=== PATIENT | female | born 1975 | race Caucasian/White ===

== ENCOUNTER 2018-07-09 18:58 | Emergency (ER) | payer SELFPAY ==
[~2018-07-09] VITALS: Ht 172.7 cm; Wt 59.0 kg
[~2018-07-09 18:58] MED LIST: ONDAN4ODT PO; PNT40TEC PO; SULF1TAB38 PO; TRM50T PO
--- NOTE | 2018-07-09 19:20 | ED Headache ---
General Stated Complaint: HEADACHE X 4-5 DAYS Source: patient Exam Limitations: no limitations History of Present Illness Date Seen by Provider: July 09, 2018 Time Seen by Provider: 19:08 Initial Comments The patient presents to ER by private conveyance with chief complaint of a headache for the past 4-5 days. She did go to her doctor and they prescribed her some antibiotics for a boil standing up on her left forearm. She thinks she was bit by a bug there. It is not draining anything. She thinks she has a fever today the ER nurse states she does not. She has been using ibuprofen but no Tylenol last dose was about 5 or 6 hours ago. She is not using anything for nausea and not having any nausea. She does have pain in the back of her head going up to her temples, non-throbbing. She has no history of migraines. She does have a congested, runny nose but no sore throat cough shortness of breath chest pain nausea vomiting diarrhea. She has not picked up the antibiotics yet because when she went to the pharmacy and they were not very up. Allergies and Home Medications Allergies Coded Allergies: No Known Drug Allergies (Unverified , 10/30/10) Home Medications Ondansetron Hcl 4 Mg Tab, 4 MG PO Q4H FOR NAUSEA AND VOMITING Prescribed by: HEBER FELDER on 12/29/111746 Pantoprazole Sodium 40 Mg Tablet.dr, 1 TAB PO DAILY Prescribed by: HEBER FELDER on 12/29/111746 Sulfamethoxazole/Trimethoprim 1 Each Tablet, 1 EACH PO BID Prescribed by: ALFREDO LANGE on 07/09/181925 Tramadol Hcl 50 Mg Tab, 50 MG PO Q4-6HOURS PRN FOR PAIN Prescribed by: HEBER FELDER on 12/29/111746 Trimethoprim/Sulfamethoxazole 1 Ea Tablet, 1 EA PO BID, (Reported) Patient Home Medication List Home Medication List Reviewed: Yes Review of Systems Review of Systems Constitutional: No chills, No diaphoresis Eyes: Denies Blindness, Denies Blurred Vision Ears, Nose, Mouth, Throat: denies ear pain, denies ear discharge; nose discharge; denies throat pain, denies throat swelling Respiratory: No cough, No hemoptysis Cardiovascular: No chest pain, No palpitations Gastrointestinal: No abdominal pain, No constipation Past Tjrltha-Ksituy-Uleemr Hx Patient Social History Alcohol Use: Denies Use Recreational Drug Use: No Smoking Status: Never a Smoker Recent Foreign Travel: No Contact w/Someone Who Travel: No Physical Exam Vital Signs Capillary Refill : Height, Weight, BMI Height: '" Weight: lbs. oz. kg; BMI Method:Actual General Appearance: WD/WN, no apparent distress HEENT: normal ENT inspection, TMs normal, pharynx normal Neck: full range of motion, normal inspection Cardiovascular: normal peripheral pulses, regular rate, rhythm Respiratory: normal breath sounds, no respiratory distress Extremities: normal range of motion, non-tender, normal capillary refill Psychiatric: alert, oriented x 3 Crainal Nerves: normal hearing, normal speech, PERRL Coordination/Gait: normal gait Skin: normal color, warm/dry, other (there is a small red raised mildly tender nodule on the left forearm without fluctuance or collection of significant purulence. There is black, pointing but no drainage.) Progress/Results/Core Measures Results/Orders Lab Results Laboratory Tests Test 07/09/18 19:25 Range/Units Urine Color YELLOW Urine Clarity CLEAR Urine pH 7 5-9 Urine Specific [place] 1.010 L 1.016-1.022 Urine Protein 1+ H NEGATIVE Urine Glucose (UA) NEGATIVE NEGATIVE Urine Ketones NEGATIVE NEGATIVE Urine Nitrite NEGATIVE NEGATIVE Urine Bilirubin NEGATIVE NEGATIVE Urine Urobilinogen NORMAL NORMAL MG/DL Urine Leukocyte Esterase 1+ H NEGATIVE Urine RBC (Auto) 2+ H NEGATIVE Urine RBC 2-5 H /HPF Urine WBC 5-10 H /HPF Urine Squamous Epithelial Cells 5-10 /HPF Urine Crystals NONE /LPF Urine Bacteria TRACE /HPF Urine Casts NONE /LPF Urine Mucus SMALL H /LPF Urine Yeast FEW H /HPF Urine Culture Indicated YES My Orders Orders - ALFREDO LANGE Diphenhydramine Tablet (Benadryl Tablet) (07/09/18 19:30) Prochlorperazine Tablet (Compazine Table (07/09/18 19:30) Ketorolac Injection (Toradol Injection) (07/09/18 19:30) Acetaminophen Tablet (Tylenol Tablet) (07/09/18 19:30) Ua Culture If Indicated (07/09/18 19:18) Sulfamethoxazole/Trimet Ds Tab (Bactrim (07/09/18 19:30) Urine Culture (07/09/18 19:25) Medications Given in ED Current Medications Medications Dose Ordered Sig/Kathrin Route Start Time Stop Time Status Last Admin Dose Admin Acetaminophen 1,000 mg ONCE ONCE PO 07/09/18 19:30 07/09/18 19:31 DC 07/09/18 19:28 1,000 MG Diphenhydramine HCl 25 mg ONCE ONCE PO 07/09/18 19:30 07/09/18 19:31 DC 07/09/18 19:28 25 MG Ketorolac Tromethamine 30 mg ONCE ONCE IVP 07/09/18 19:30 07/09/18 19:31 DC 07/09/18 19:30 30 MG Prochlorperazine Maleate 10 mg ONCE ONCE PO 07/09/18 19:30 07/09/18 19:31 DC 07/09/18 19:28 10 MG Trimethoprim/ Sulfamethoxazole 1 ea ONCE ONCE PO 07/09/18 19:30 07/09/18 19:31 DC 07/09/18 19:33 1 EA Progress Progress Note #1: Time: 19:23 Progress Note Compazine, Benadryl, Tylenol, Toradol and a urinalysis. Patient sounds like she' s having a viral syndrome with tension headache. Plan to give her her first dose of antibiotic for her abscess so she can go home get some sleep. It is not at a point where it could be drained as there does not appear to be any fluctuance or collection of fluid underneath. Progress Note #2: Time: 20:01 Progress Note Urinalysis probably represents contamination however she is going to put on Bactrim for a week anyways for her abscess. We'll follow the culture. Departure Impression Primary Impression: Viral syndrome Additional Impressions: Tension headache Abscess of left arm Disposition: 01 HOME, SELF-CARE Condition: Stable Departure-Patient Inst. Decision time for Depature: 20:01 Referrals: NO,LOCAL PHYSICIAN (PCP/Family) Primary Care Physician Patient Instructions: Headache, Adult (DC), Skin Abscess Add. Discharge Instructions: pipelines superintendent the antibiotic at the pharmacy. Use warm compresses on the abscess as often as necessary. Use Tylenol and ibuprofen for your headache. Get some sleep. Do not use phones, tablets or TV tonight. Scripts Sulfamethoxazole/Trimethoprim (Bactrim Ds Tablet) 1 Each Tablet 1 EACH PO BID for 7 Days, #14 TAB 0 Refills Prov: ALFREDO LANGE 07/09/18 ALFREDO LANGE July 09, 2018 19:20
[2018-07-09] MEDS ORDERED: SULF1TAB35 PO (19:26)
[2018-07-09] MEDS ORDERED: KETOROLAC 30 MG/ML VIAL IVP ONE (19:30)
[2018-07-09] MEDS ORDERED: TRIM/SULFAMETH 160/800 (SEPTRA DS) TAB PO ONE (19:30)
[2018-07-09] MEDS ORDERED: ACETAMINOPHEN 500 MG TAB (TYLENOL) PO ONE (19:30)
[2018-07-09] MEDS ORDERED: diphenhydrAMINE 25 MG TAB (BENADRYL) PO ONE (19:30)
[2018-07-09] MEDS ORDERED: PROCHLORPERAZINE 10 MG TAB (COMPAZINE) PO ONE (19:30)
[2018-07-09 19:34] LABS: BILIRUBIN,URINE NEGATIVE (NEGATIVE); CLARITY,URINE CLEAR; COLOR,URINE YELLOW; GLUCOSE, URINE (UA) NEGATIVE (NEGATIVE); KETONES,URINE NEGATIVE (NEGATIVE); LEUKOCYTE ESTERASE ,URINE 1+ (NEGATIVE); NITRITE,URINE NEGATIVE (NEGATIVE); PH,URINE 7 (5-9); PROTEIN,URINE 1+ (NEGATIVE); UROBILINOGEN,URINE NORMAL (NORMAL)
[2018-07-09 19:56] LABS: BACTERIA,URINE TRACE /HPF; YEAST,URINE FEW /HPF
[2018-07-09 20:06] VITALS: BP 116/89
== END 2018-07-09 20:06 | disposition home or self-care (01) ==
LOC: ER 18:58
DX: B34.9 Viral infection, unspecified (principal); G44.209 Tension-type headache, unspecified, not intractable; L02.414 Cutaneous abscess of left upper limb
CPT/HCPCS: 81000; 87088; 96374; 99283